=== PATIENT | female | born 1985 | race African-American/Black ===

== ENCOUNTER 2022-05-07 08:48 | Emergency (ER) | payer SELFPAY ==
[2022-05-07] MEDS ORDERED: Lactated Ringers 1,000 ML IV ONE (08:54)
[2022-05-07 09:41] LABS: CARBON DIOXIDE,CO2 26.2 mmol/L (21.0-32.0); POTASSIUM,K 2.8 mmol/L (3.5-5.1)
[2022-05-07 09:49] LABS: CORONAVIRUS COVID-19 NAA NEGATIVE (NEGATIVE); INFLUENZA A NAA NEGATIVE (NEGATIVE); INFLUENZA B NAA NEGATIVE (NEGATIVE); RESPIRATORY SYNCYTIAL VIR NAA NEGATIVE (NEGATIVE)
[2022-05-07] MEDS ORDERED: Potassium Bicarbonate 25 MEQ Tab.EFF PO STA (10:38)
[2022-05-07] MEDS ORDERED: Potassium Chloride 10 MEQ in Premix Bag 1 BAG IV ONE (10:55)
[2022-05-07] MEDS ORDERED: Sodium Chloride 0.9% 250 ML IV ONE (11:15)
[2022-05-07] MEDS ORDERED: Potassium Chloride 20 MEQ Tab.ER PO STA (11:21)
[2022-05-07] MEDS ORDERED: Magnesium Sulfate/Water 2 GM in Premix Bag 1 BAG IV ONE (11:54)
== END 2022-05-07 14:28 | disposition home or self-care (01) ==
LOC: MW.ED 08:48
DX: E87.6 Hypokalemia (principal); F17.210 Nicotine dependence, cigarettes, uncomplicated; Z91.040 Latex allergy status; Z88.8 Allergy status to other drugs, medicaments and biological substances; Z88.5 Allergy status to narcotic agent; Z20.822 Contact with and (suspected) exposure to COVID-19
CPT/HCPCS: 0241U; 36415; 80053; 81001; 83690; 84703; 85025; 87086; 93005; 96361; 96365; 96367; 99285; A9270; J3475; J3480; J7050; J7120; 87088; 87186